=== PATIENT | male | born 1960 | race Hispanic/Latino ===

== ENCOUNTER 2021-12-27 22:12 | Emergency (ER) | payer SELFPAY ==
[2021-12-27] MEDS ORDERED: EPINEPHrine 1 MG/10 ML SYR IV ONE (22:13)
--- NOTE | 2021-12-27 22:25 | EDPHYS ---
Physician Documentation [facility] Name: Akash Batista Age: 61 yrs Sex: Male : 1960 Arrival Date: 12/27/2021 Time: 22:16 Bed 3 Private MD: ED Physician Claude Rubi HPI: 12/28 05:40 This 61 yrs old Male presents to ER via EMS with complaints of Unresponsive. kdr 05:40 Preceding the arrest, the patient collapsed. The arrest occurred at home. Pre-hospital kdr course: The arrest was witnessed Bystanders at the scene performed CPR. EMS care prior to arrival: initiation of ACLS, peripheral IV. The patient has not experienced similar symptoms in the past. The patient has not recently seen a physician. EMS was turned down for chest pain. Family states that they had called when the patient had complained of chest pain after eating. Patient Dart according to family became very uncomfortable then stood up and then that shortly after that collapsed. Family had called a second time to find out where this was and why they had responded. EMS reports that they arrived about 2 minutes after the second call. On their arrival the patient was pulseless and unresponsive. Dilation airway an IV and began ACLS. The patient was initially noted to be in asystole. Despite several rounds of ACLS medications, the patient did not regain consciousness or have any rhythm other than asystole. On arrival to the ED, the patient remained in asystole. The patient had been down for approximately 50 minutes at that time.. Historical: - PMHx: 12/27 22:28 Hypertensive disorder; ll3 - Social history:: Smoking status: unknown. ROS: 12/28 05:40 Constitutional: Negative for fever, chills, and weight loss, Eyes: Negative for injury, kdr pain, redness, and discharge, Neck: Negative for injury, pain, and swelling, Respiratory: Negative for shortness of breath, cough, wheezing, and pleuritic chest pain, Abdomen/GI: Negative for abdominal pain, nausea, vomiting, diarrhea, and constipation, Back: Negative for injury and pain, : Negative for injury, bleeding, discharge, and swelling, MS/Extremity: Negative for injury and deformity, Skin: Negative for injury, rash, and discoloration, Neuro: Negative for headache, weakness, numbness, tingling, and seizure activity. Psych: Negative for depression, anxiety, suicide ideation, homicidal ideation, and hallucinations, Allergy/Immunology: Negative for hives, rash, and allergies, Endocrine: Negative for neck swelling, polydipsia, polyuria, polyphagia, and marked weight changes, Hematologic/Lymphatic: Negative for swollen nodes, abnormal bleeding, and unusual bruising. Cardiovascular: Positive for chest pain, Negative for edema, orthopnea, palpitations, paroxysmal nocturnal dyspnea. Exam: 05:40 Constitutional: This is a well developed, well nourished patient who is unresponsive kdr Head/Face: Normocephalic, atraumatic. Blood around the airway suggesting that there may have been a somewhat traumatic intubation/airway establishment 05:40 Eyes: Pupils: are fixed and dilated. 05:40 Cardiovascular: Rate: Rhythm: asystole. MDM: 12/27 22:24 Patient medically screened. kdr 12/28 05:40 Data reviewed: vital signs, nurses notes. Counseling: I had a detailed discussion with kdr the patient and/or guardian regarding: the historical points, exam findings, and any diagnostic results supporting the discharge/admit diagnosis, Patient was pronounced shortly after arrival. The patient had been down for 15 minutes without a pulse or a rhythm established. Patient's pupils were fixed and dilated.. Administered Medications: No medications were administered Disposition: 12/27 22:20 . kdr Disposition Summary: 12/27/21 22:24 Patient Location: Utility Accounts Director kdr Pronouncing Physician: Claude Rubi Time of : 22:13 12/27/2021(12/27/21 22:30) kdr Diagnosis - Cardiac arrest, cause unspecified kdr Signatures: Claude Rubi MD MD kdr Luann Carrasco RN RN ll3 Corrections: (The following items were deleted from the chart) 22:30 22:24 20:13 12/27/2021 kdr kdr
--- NOTE | 2021-12-27 22:25 | ER ---
Nurse's Notes [facility] Name: Akash Batista Age: 61 yrs Sex: Male : 1960 Arrival Date: 12/27/2021 Time: 22:16 Bed 3 Private MD: Diagnosis: Cardiac arrest, cause unspecified Presentation: 12/27 22:20 Chief complaint: EMS states: Toned out for chest pain, EMS states pt had not pulse upon ll3 arrival, EMS states they initiated CPR at 213, states pt received 4 rounds of EPI NUT CULLER, CPR is continued upon arrival to the ED. Coronavirus screen: Vaccine status:. Onset of symptoms was December 27, 2021. Care prior to arrival: Medication(s) given: 4 Rounds of EPI NUT CULLER IV initiated. 20 GA, in the left antecubital area, Glucose check: 123. Activity prior to arrival: unresponsive. 22:20 Method Of Arrival: EMS: [facility] ll3 22:20 Acuity: LIYA 1 ll3 22:47 Compressions began at 21:31. ll3 23:09 Initial Sepsis Screen: Does the patient meet any 2 criteria?. ll3 Triage Assessment: 22:28 General: Appears Unresponsive. Behavior is unresponsive. Pain: Unable to use pain ll3 scale. Patient is unresponsive. Cardiovascular: Rhythm is asystole. Historical: - PMHx: 22:28 Hypertensive disorder; ll3 - Social history:: Smoking status: unknown. Assessment: 22:16 CPR assessment: unresponsive, pupils fixed \T\ dilated, no respiratory effort, cyanotic, ll3 pale. General: Behavior is unresponsive. Neuro: Vitale Agitation-Sedation Scale (RASS): -5 Unarousable Pupils are fixed, dilated. Respiratory: Respiratory effort is None Respiratory pattern is None. ED Course: 22:16 Patient arrived in ED. mw2 22:17 Police notified at 22:17 [place] [employer] notified to have an officer call out the Secondary School Teacher Librarian for mw2 patient. 22:18 Claude Rubi MD is Attending Physician. kdr 22:20 Luann Carrasco RN is Primary Nurse. ll3 22:20 Claude Rubi MD is Pronouncing Provider. kdr 22:28 Triage completed. ll3 22:28 Arm band placed on. ll3 22:41 [place] [employer] called their Cleat Feeder will be here in about 30 minutes. mw2 Administered Medications: No medications were administered Outcome: 22:16 Outcome Patient ll3 22:16 Patient : Time of 22:13 Pronounced by Claude Rubi MD 22:16 Condition: 12/28 01:07 Patient left the ED. ll3 Signatures: Claude Rubi MD MD [facility] Farshad Bolton mw2 Luann Carrasco RN RN ll3
== END 2021-12-28 01:07 ==
LOC: ER 22:12
DX: I46.9 Cardiac arrest, cause unspecified (principal); I10 Essential (primary) hypertension
CPT/HCPCS: 92950; 99285; J0171